=== PATIENT | female | born 1980 | race Caucasian/White ===

== ENCOUNTER 2017-05-02 12:33 | Emergency (ER) | payer MEDICAID, OTHER ==
--- NOTE | 2017-05-02 14:49 | PD ---
HPI Chief Complaint: Skin Problem Time Seen by Provider: 14:49 Travel History International Travel<30 days: No Contact w/Intl Traveler<30days: No Traveled to known affect area: No History of Present Illness HPI 36-year-old female presents to the emergency department for evaluation of pruritic lesions on her lower extremity. She has a few on her trunk and a couple on her right arm. She initially thought that these were bedbugs. She also has a dog who is she is uncertain if he or she has fleas. Denies any other new exposures. Her son also has these bumps. They are not painful. They are not pustules. She does scratch them frequently. She has no other symptoms to report. [facility] Past Medical History Medical History: Denies Significant Hx Social History Alcohol Use: No Tobacco Use: No Substance Use: No Allergies-Medications (Allergen,Severity, Reaction): Coded Allergies: No Known Allergies (Unverified Adverse Reaction, Unknown, 05/02/17) Reported Meds & Prescriptions Reported Meds & Active Scripts Active Prednisone 50 Mg Tab 50 Mg PO DAILY 3 Days Zantac (Ranitidine HCl) 300 Mg Tab 300 Mg PO DAILY 3 Days Review of Systems Except as stated in HPI: all other systems reviewed are Neg Physical Exam Narrative GENERAL: Well-nourished, well-developed female patient, ambulatory no acute distress. SKIN: Focused skin assessment warm/dry. Few scattered papular lesions with localized erythema. There is no induration. Mild excoriation. No fluctuation. HEAD: Normocephalic. EYES: No scleral icterus. No injection or drainage. NECK: Supple, trachea midline. No JVD or lymphadenopathy. CARDIOVASCULAR: Regular rate and rhythm without murmurs, gallops, or rubs. RESPIRATORY: Breath sounds equal bilaterally. No accessory muscle use. GASTROINTESTINAL: Abdomen soft, non-tender, nondistended. MUSCULOSKELETAL: No cyanosis, or edema. BACK: Nontender without obvious deformity. No CVA tenderness. Data Data Last Documented VS Vital Signs Date Time Temp Pulse Resp B/P (MAP) Pulse Ox O2 Delivery O2 Flow Rate FiO2 05/02/17 15:40 97.8 78 16 122/81 (95) 99 Orders Orders Dexamethasone Inj (Decadron Inj) (05/02/17 15:00) Ranitidine Liq (Zantac Liq) (05/02/17 15:00) Ed Discharge Order (05/02/17 14:54) [facility] Medical Decision Making Medical Screen Exam Complete: Yes Emergency Medical Condition: Yes Medical Record Reviewed: Yes Differential Diagnosis Insect bite versus local reaction versus contact dermatitis versus folliculitis Narrative Course 36-year-old female presents emergency department for evaluation of pruritic lesions. The lesions appear consistent with insect bites with a localized reaction. I have counseled her on care. Encouraged her to not scratch them. She agrees to follow-up with a primary care provider and return immediately with any acute worsening symptoms. Diagnosis Primary Impression: Insect bites Qualified Codes: W57.XXXA - Bitten or stung by nonvenomous insect and other nonvenomous arthropods, initial encounter Referrals: Primary Care Physician Patient Instructions: Bed Bugs (ED), General Instructions Additional Instructions: Avoid scratching the bites Continue Benadryl as directed on package as needed for itching Follow-up with a primary care provider Make sure you are home is treated Return immediately with any acute worsening symptoms Med/Other Pt SpecificInfo: Prescription(s) given Scripts Prednisone (Prednisone) 50 Mg Tab 50 MG PO DAILY for 3 Days, #3 TAB 0 Refills Prov: Gely Ram 05/02/17 Ranitidine (Zantac) 300 Mg Tab 300 MG PO DAILY for 3 Days, #3 TAB 0 Refills Prov: Gely Ram 05/02/17 Disposition: 01 DISCHARGE HOME Condition: Stable Gely Ram May 02, 2017 14:49
[2017-05-02] MEDS ORDERED: ZANT300T PO (14:55)
[2017-05-02] MEDS ORDERED: PRED50 PO (14:55)
[2017-05-02] MEDS ORDERED: DEXAMETHASONE SOD PHOS 20 MG/5 ML VIAL IM ONE (15:00)
[2017-05-02] MEDS ORDERED: RANITIDINE HCL SYRUP 150 MG/10 ML UDC PO ONE (15:00)
[2017-05-02 15:40] VITALS: BP 122/81; TEMP 97.8
== END 2017-05-02 15:40 | disposition home or self-care (01) ==
LOC: NEPD 12:33
DX: R23.8 Other skin changes (principal); W57.XXXA Bitten or stung by nonvenomous insect and other nonvenomous arthropods, initial encounter
CPT/HCPCS: 96372; 99283; J1100